=== PATIENT | female | born 1965 | race Caucasian/White ===

== ENCOUNTER 2020-11-23 11:02 | Emergency (ER) | payer OTHER ==
[~2020-11-23] VITALS: Ht 157.5 cm; Wt 90.9 kg
[2020-11-23] MEDS ORDERED: GABA-1181 PO (11:09)
[2020-11-23] MEDS ORDERED: AMLO10TA55 PO (11:10)
[2020-11-23] MEDS ORDERED: KETOROLAC TROMETHAMINE 30 MG/ML VIAL IM ONE (11:30)
[2020-11-23 12:45] VITALS: BP 152/76
== END 2020-11-23 12:59 | disposition home or self-care (01) ==
LOC: EMS 11:06
DX: M13.861 Other specified arthritis, right knee (principal); I10 Essential (primary) hypertension
CPT/HCPCS: 73562; 96372; 99283; J1885